=== PATIENT | male | born 1955 | race Caucasian/White ===

== ENCOUNTER 2017-09-15 01:24 | Emergency (ER) | payer SELFPAY ==
[~2017-09-15] VITALS: Ht 180.3 cm; Wt 75.5 kg
[2017-09-15 01:31] VITALS: BP 157/104; Ht 180.3 cm; Wt 75.5 kg
== END 2017-09-15 04:26 | disposition left against medical advice (07) ==
LOC: ED 01:24
DX: Z53.21 Procedure and treatment not carried out due to patient leaving prior to being seen by health care provider (principal)